=== PATIENT | male | born 1975 | race Caucasian/White ===

== ENCOUNTER 2022-06-30 14:09 | Inpatient (IN) | payer OTHER ==
[2022-06-30] MEDS ORDERED: Ondansetron PF 4 MG/2 ML Vial IVP PRN (16:23)
[2022-06-30] MEDS ORDERED: Ondansetron ODT 4 MG TAB PO PRN (16:23)
[2022-06-30] MEDS ORDERED: Nicotine 14 MG PATCH TD PRN (17:00)
[2022-06-30 18:13] LABS: Magnesium 1.7 mg/dL (1.6-2.6)
[2022-06-30 18:19] LABS: Troponin I 0.048 ng/mL (< 0.028)
[2022-06-30] MEDS: Gabapentin 300 MG CAP PO PRN (18:42)
[2022-06-30] MEDS: Acetaminophen 325 MG TAB PO PRN (18:42)
[2022-06-30] MEDS: Enoxaparin Sodium 40 MG/0.4 ML SYRINGE SC SCH (20:25)
[2022-06-30 21:04] LABS: Troponin I 0.052 ng/mL (< 0.028)
[2022-06-30] MEDS ORDERED: Furosemide 40 MG/4 ML VIAL SLOW IVP SCH (21:15)
[2022-06-30] MEDS ORDERED: traMADol HCl 50 MG TAB PO SCH (23:00)
[2022-07-01 04:15] LABS: Anion Gap 16 mmol/L (10-20); BUN (Urea Nitrogen) 16 mg/dL (8.9-20.6); Calc. Creatinine Clearance 150 mL/min (70-130); Calcium 8.7 mg/dL (7.8-10.44); Carbon Dioxide 27 mmol/L (22-29); Chloride 100 mmol/L (98-107); Estimated GFR 81; Glucose 138 mg/dL (70-105); Potassium 3.2 mmol/L (3.5-5.1); Sodium 140 mmol/L (136-145)
[2022-07-01 04:24] LABS: #Basophils 0.1 10x3/uL (0.0-0.2); #Eosinphils 0.2 10x3/uL (0.0-0.5); #Monocytes 0.6 10x3/uL (0.0-1.1); #Neutrophils 6.7 10x3/uL (1.5-8.4); %Basophils 0.6 % (0.0-2.0); %Eosinophils 1.9 % (0.0-6.0); %Lymphocytes 20.6 % (18.0-47.0); %Monocytes 5.9 % (0.0-10.0); %Neutrophils 70.7 % (40.0-75.0); Hemoglobin 12.9 g/dL (13.5-17.5); Mean Corpuscular HGB CONC 33.3 g/dL (32.0-36.0); Mean Corpuscular Hemoglobin 31.2 pg (27.0-33.0); Mean Corpuscular Volume 93.7 fl (81.2-95.1); Platelet Count 191 10x3/uL (150-450); RBC Distribution Width 14.3 % (11.5-14.5); Red Blood Cell (RBC) Count 4.13 10x6/uL (4.32-5.72); White Blood Cell (WBC) Count 9.5 10x3/uL (3.5-10.5)
[2022-07-01] MEDS: Furosemide 40 MG/4 ML VIAL SLOW IVP SCH ×2 (06:06→13:57)
[2022-07-01] MEDS: Gabapentin 300 MG CAP PO PRN (08:35)
[2022-07-01] MEDS: Aspirin 81 mg Enteric Coated Tablet PO SCH (08:35)
[2022-07-01] MEDS: Acetaminophen 325 MG TAB PO PRN (08:35)
[2022-07-01] MEDS ORDERED: Amlodipine 10 MG TAB PO SCH (09:00)
[2022-07-01] MEDS ORDERED: Valsartan 80 MG TAB PO SCH (10:45)
[2022-07-01 11:34] LABS: Troponin I 0.039 ng/mL (< 0.028)
[2022-07-01] MEDS: Potassium Chloride 20 MEQ TAB PO SCH (16:45)
[2022-07-01] MEDS: Carvedilol 6.25 MG TAB PO SCH (16:45)
[2022-07-01] MEDS: Enoxaparin Sodium 40 MG/0.4 ML SYRINGE SC SCH (19:54)
[2022-07-01] MEDS: Atorvastatin Calcium 20 MG TAB PO SCH (19:54)
[2022-07-01] MEDS: traMADol HCl 50 MG TAB PO PRN ×2 (21:19→22:17)
[2022-07-02 05:30] LABS: #Eosinphils 0.1 10x3/uL (0.0-0.5); #Monocytes 0.5 10x3/uL (0.0-1.1); #Neutrophils 6.2 10x3/uL (1.5-8.4); %Basophils 0.5 % (0.0-2.0); %Eosinophils 1.5 % (0.0-6.0); %Lymphocytes 21.6 % (18.0-47.0); %Neutrophils 70.1 % (40.0-75.0); Hemoglobin 12.8 g/dL (13.5-17.5); Mean Corpuscular HGB CONC 32.3 g/dL (32.0-36.0); Mean Corpuscular Hemoglobin 30.7 pg (27.0-33.0); Mean Platelet Volume 10.2 fl (7.4-10.4); Platelet Count 199 10x3/uL (150-450); RBC Distribution Width 14.5 % (11.5-14.5); Red Blood Cell (RBC) Count 4.17 10x6/uL (4.32-5.72); White Blood Cell (WBC) Count 8.8 10x3/uL (3.5-10.5)
[2022-07-02 05:41] LABS: Anion Gap 15 mmol/L (10-20); BUN (Urea Nitrogen) 22 mg/dL (8.9-20.6); Calc. Creatinine Clearance 136 mL/min (70-130); Calcium 8.4 mg/dL (7.8-10.44); Carbon Dioxide 28 mmol/L (22-29); Cardiac Risk 5.1 (Less than 4.5); Chloride 98 mmol/L (98-107); Cholesterol 133 mg/dl (< 200 Desired); Estimated GFR 74; Glucose 155 mg/dL (70-105); HDL Cholesterol 26 mg/dL (>60 Neg Risk); LDL Cholesterol, Calculated 90 mg/dL; Potassium 3.4 mmol/L (3.5-5.1); Sodium 138 mmol/L (136-145); Triglycerides 83 mg/dL (Less than 150)
[2022-07-02] MEDS: Furosemide 40 MG/4 ML VIAL SLOW IVP SCH (05:54)
[2022-07-02] MEDS ORDERED: Potassium Chloride 20 MEQ TAB PO SCH ×3 (08:00→17:00)
[2022-07-02 08:49] LABS: Magnesium 1.8 mg/dL (1.6-2.6)
[2022-07-02] MEDS: Potassium Chloride 20 MEQ TAB PO SCH (08:55)
[2022-07-02] MEDS: Acetaminophen 325 MG TAB PO PRN (08:55)
[2022-07-02] MEDS: Valsartan 80 MG TAB PO SCH (08:55)
[2022-07-02] MEDS: Aspirin 81 mg Enteric Coated Tablet PO SCH (08:55)
[2022-07-02] MEDS: Gabapentin 300 MG CAP PO PRN (08:55)
[2022-07-02] MEDS: Carvedilol 6.25 MG TAB PO SCH ×2 (08:55→16:38)
[2022-07-02] MEDS ORDERED: Lisinopril 10 MG TAB PO SCH (09:00)
[2022-07-02] MEDS ORDERED: Spironolactone 25 MG TAB PO SCH (10:15)
[2022-07-02] MEDS ORDERED: Magnesium Sulfate 4 GM in Sodium Chloride 0.9% 250 ML 250 ML IVPB SCH (10:30)
[2022-07-02] MEDS: Magnesium 2 GM/50 ML(in water) 2 GM in Premix Bag 1 BAG IVPB SCH ×2 (10:33→12:55)
[2022-07-02] MEDS ORDERED: Communication Order-Pharmacy FS SCH (11:30)
[2022-07-02] MEDS: Furosemide 100 MG/10 ML VIAL SLOW IVP SCH (12:55)
[2022-07-02] MEDS: traMADol HCl 50 MG TAB PO PRN (20:38)
[2022-07-02] MEDS: Atorvastatin Calcium 20 MG TAB PO SCH (20:39)
[2022-07-02] MEDS: Enoxaparin Sodium 40 MG/0.4 ML SYRINGE SC SCH (21:29)
[2022-07-03 04:14] LABS: #Basophils 0.1 10x3/uL (0.0-0.2); #Eosinphils 0.2 10x3/uL (0.0-0.5); #Monocytes 0.5 10x3/uL (0.0-1.1); %Basophils 0.7 % (0.0-2.0); %Eosinophils 1.8 % (0.0-6.0); %Lymphocytes 25.1 % (18.0-47.0); %Monocytes 5.4 % (0.0-10.0); %Neutrophils 66.6 % (40.0-75.0); Hemoglobin 12.2 g/dL (13.5-17.5); Mean Corpuscular HGB CONC 32.2 g/dL (32.0-36.0); Mean Corpuscular Hemoglobin 30.6 pg (27.0-33.0); Mean Platelet Volume 10.1 fl (7.4-10.4); Platelet Count 187 10x3/uL (150-450); RBC Distribution Width 14.3 % (11.5-14.5); Red Blood Cell (RBC) Count 3.99 10x6/uL (4.32-5.72); White Blood Cell (WBC) Count 8.9 10x3/uL (3.5-10.5)
[2022-07-03 04:23] LABS: INR-International Normal Ratio 1.1; PTT 29.1 sec (22.0-33.0); Prothrombin Time 11.9 sec (9.5-12.1)
[2022-07-03 04:25] LABS: ALT (SGPT) 7 U/L (8-55); AST (SGOT) 16 U/L (5-34); Albumin 3.6 g/dL (3.5-5.0); Alkaline Phosphatase 110 U/L (40-110); Anion Gap 11 mmol/L (10-20); BUN (Urea Nitrogen) 26 mg/dL (8.9-20.6); Bilirubin, Total 0.9 mg/dL (0.2-1.2); Calc. Creatinine Clearance 148 mL/min (70-130); Calcium 8.6 mg/dL (7.8-10.44); Carbon Dioxide 29 mmol/L (22-29); Chloride 100 mmol/L (98-107); Estimated GFR 80; Globulin 2.8 g/dL (2.4-3.5); Glucose 163 mg/dL (70-105); Magnesium 2.3 mg/dL (1.6-2.6); Protein, Total 6.4 g/dL (6.0-8.3); Sodium 136 mmol/L (136-145)
[2022-07-03] MEDS: Furosemide 100 MG/10 ML VIAL SLOW IVP SCH ×2 (06:22→14:08)
[2022-07-03] MEDS: Carvedilol 6.25 MG TAB PO SCH ×2 (06:24→18:04)
[2022-07-03] MEDS: Aspirin 81 mg Enteric Coated Tablet PO SCH (06:26)
[2022-07-03] MEDS: Valsartan 80 MG TAB PO SCH (06:27)
[2022-07-03] MEDS: Spironolactone 25 MG TAB PO SCH (08:11)
[2022-07-03] MEDS ORDERED: Heparin 10,000 UNITS/ 10 ML VIAL ONE (12:46)
[2022-07-03] MEDS ORDERED: Nitroglycerin 50 MG/250 ML BOT 250 ML ONE (12:46)
[2022-07-03] MEDS ORDERED: Adenosine 6 MG/2 ML VIAL ONE (12:47)
[2022-07-03] MEDS ORDERED: Verapamil 5 MG/2 ML VIAL ONE (12:47)
[2022-07-03] MEDS ORDERED: Bivalirudin 250 MG VIAL ONE (12:48)
[2022-07-03] MEDS ORDERED: Lidocaine 4% PF 5 ML AMP ONE (13:04)
[2022-07-03] MEDS ORDERED: Lidocaine 1% MPF 2 ML VIAL ONE (13:05)
[2022-07-03] MEDS ORDERED: Iopamidol 300 61% 100 ML VIAL FS ONE (13:43)
[2022-07-03] MEDS ORDERED: Fentanyl 100 MCG/2 ML VIAL ONE (13:58)
[2022-07-03] MEDS ORDERED: Midazolam HCl 2 mg/2 ml Vial ONE (13:59)
[2022-07-03] MEDS ORDERED: Acetaminophen/Codeine 30-300mg Tablet PO PRN (14:25)
[2022-07-03] MEDS ORDERED: Nitroglycerin 0.4 MG TAB (25 Tab Bottle) SL PRN (14:25)
[2022-07-03] MEDS ORDERED: Sodium Chloride 0.9% 200 ML IV PRN (14:25)
[2022-07-03] MEDS: Acetaminophen/Codeine 30-300mg Tablet PO PRN (18:08)
[2022-07-03] MEDS: traMADol HCl 50 MG TAB PO PRN (19:31)
[2022-07-03] MEDS: Atorvastatin Calcium 20 MG TAB PO SCH (21:27)
[2022-07-04] MEDS: Acetaminophen/Codeine 30-300mg Tablet PO PRN ×3 (03:49→16:28)
[2022-07-04 04:41] LABS: Anion Gap 11 mmol/L (10-20); BUN (Urea Nitrogen) 23 mg/dL (8.9-20.6); Calc. Creatinine Clearance 155 mL/min (70-130); Calcium 9.1 mg/dL (7.8-10.44); Carbon Dioxide 32 mmol/L (22-29); Chloride 98 mmol/L (98-107); Estimated GFR 85; Glucose 158 mg/dL (70-105); Potassium 4.2 mmol/L (3.5-5.1); Sodium 137 mmol/L (136-145)
[2022-07-04] MEDS: Furosemide 100 MG/10 ML VIAL SLOW IVP SCH ×2 (05:53→14:28)
[2022-07-04] MEDS: Spironolactone 25 MG TAB PO SCH (08:08)
[2022-07-04] MEDS: Valsartan 80 MG TAB PO SCH (08:08)
[2022-07-04] MEDS: traMADol HCl 50 MG TAB PO PRN ×2 (08:08→21:07)
[2022-07-04] MEDS: Carvedilol 6.25 MG TAB PO SCH ×2 (08:08→16:28)
[2022-07-04] MEDS: Aspirin 81 mg Enteric Coated Tablet PO SCH (08:09)
[2022-07-04] MEDS: Gabapentin 300 MG CAP PO PRN (08:09)
[2022-07-04] MEDS: Atorvastatin Calcium 20 MG TAB PO SCH (21:09)
[2022-07-05 05:26] LABS: Anion Gap 11 mmol/L (10-20); BUN (Urea Nitrogen) 27 mg/dL (8.9-20.6); Calc. Creatinine Clearance 151 mL/min (70-130); Calcium 9.1 mg/dL (7.8-10.44); Carbon Dioxide 31 mmol/L (22-29); Chloride 98 mmol/L (98-107); Estimated GFR 82; Glucose 152 mg/dL (70-105); Potassium 4.4 mmol/L (3.5-5.1); Sodium 136 mmol/L (136-145)
[2022-07-05] MEDS: Furosemide 100 MG/10 ML VIAL SLOW IVP SCH ×2 (06:27→14:17)
[2022-07-05] MEDS ORDERED: Carvedilol 25 MG TAB PO SCH (08:15)
[2022-07-05] MEDS: Gabapentin 300 MG CAP PO PRN (09:11)
[2022-07-05] MEDS: Spironolactone 25 MG TAB PO SCH (09:12)
[2022-07-05] MEDS: Aspirin 81 mg Enteric Coated Tablet PO SCH (09:12)
[2022-07-05] MEDS: Valsartan 80 MG TAB PO SCH (09:13)
[2022-07-05] MEDS: Carvedilol 6.25 MG TAB PO SCH (10:09)
[2022-07-05] MEDS: Carvedilol 25 MG TAB PO SCH (18:32)
[2022-07-05] MEDS: Atorvastatin Calcium 20 MG TAB PO SCH (20:14)
[2022-07-05] MEDS: Acetaminophen 325 MG TAB PO PRN (20:14)
[2022-07-05] MEDS: traMADol HCl 50 MG TAB PO PRN (20:15)
[2022-07-06] MEDS: Furosemide 100 MG/10 ML VIAL SLOW IVP SCH ×2 (05:07→14:20)
[2022-07-06 05:13] LABS: Anion Gap 13 mmol/L (10-20); BUN (Urea Nitrogen) 30 mg/dL (8.9-20.6); Calc. Creatinine Clearance 145 mL/min (70-130); Calcium 8.7 mg/dL (7.8-10.44); Carbon Dioxide 30 mmol/L (22-29); Chloride 99 mmol/L (98-107); Estimated GFR 76; Glucose 132 mg/dL (70-105); Potassium 4.7 mmol/L (3.5-5.1); Sodium 137 mmol/L (136-145)
[2022-07-06 05:40] VITALS: BMI 40.6
[2022-07-06] MEDS: Aspirin 81 mg Enteric Coated Tablet PO SCH (09:07)
[2022-07-06] MEDS: Valsartan 80 MG TAB PO SCH (09:07)
[2022-07-06] MEDS: Carvedilol 25 MG TAB PO SCH ×2 (09:07→17:46)
[2022-07-06] MEDS: Spironolactone 25 MG TAB PO SCH (09:07)
[2022-07-06 16:52] VITALS: BP 116/55; TEMP 98
== END 2022-07-06 19:32 | disposition short-term general hospital (02) | DRG 280 ==
LOC: INTOOBSV 14:09 → CSHTELE 14:09 → OBSVTOIN 07-02 12:37
PROVIDERS: ADMIT Family Medicine; ATTEND Family Medicine
PROC: 4A023N7 Measurement of Cardiac Sampling and Pressure, Left Heart, Percutaneous Approach (ICD-10-PCS; principal; 2022-07-03)
PROC: B2111ZZ Fluoroscopy of Multiple Coronary Arteries using Low Osmolar Contrast (ICD-10-PCS; 2022-07-03)
PROC: B2151ZZ Fluoroscopy of Left Heart using Low Osmolar Contrast (ICD-10-PCS; 2022-07-03)
PROC: B2181ZZ Fluoroscopy of Left Internal Mammary Bypass Graft using Low Osmolar Contrast (ICD-10-PCS; 2022-07-03)
DX: I21.4 Non-ST elevation (NSTEMI) myocardial infarction (principal); I50.23 Acute on chronic systolic (congestive) heart failure; I11.0 Hypertensive heart disease with heart failure; J45.909 Unspecified asthma, uncomplicated; E87.6 Hypokalemia; F17.210 Nicotine dependence, cigarettes, uncomplicated; E78.5 Hyperlipidemia, unspecified; I25.10 Atherosclerotic heart disease of native coronary artery without angina pectoris; I25.5 Ischemic cardiomyopathy; Z20.822 Contact with and (suspected) exposure to COVID-19; Z79.51 Long term (current) use of inhaled steroids; Z79.899 Other long term (current) drug therapy; Z90.49 Acquired absence of other specified parts of digestive tract; Z98.890 Other specified postprocedural states
CPT/HCPCS: 36415; 36416; 80048; 80053; 80061; 83735; 83880; 84484; 85025; 85610; 85730; 93459; 94640; 94760; 96372; 96374; 96375; 99152; C1769; C1894; G0378; G0379; J0153; J0583; J1644; J1650; J1940; J2250; J3010; J3475; J7620; Q0162; Q9967; U0003; U0005